=== PATIENT | male | born 1985 | race African-American/Black ===

== ENCOUNTER 2018-10-04 12:00 | Emergency (ER) | payer OTHER ==
[~2018-10-04] VITALS: Ht 167.6 cm; Wt 90.0 kg
[2018-10-04] MEDS ORDERED: NS 1,000 ML IV ONE (12:30)
[2018-10-04 13:10] LABS: BASO % 0.1 % (0.0-1.0); EOS # 0.1 10^3/uL (0.0-0.50); EOS % 0.7 % (0.0-3.0); HEMATOCRIT 37.8 % (42.0-52.0); HEMOGLOBIN 12.2 g/dl (13.5-17.5); LYMPH # 2.5 10^3/uL (1.5-4.5); LYMPH % 16.8 % (24.0-44.0); MEAN CORPUSCULAR HEMOGLOBIN 27.5 pg (27.0-33.0); MEAN CORPUSCULAR HGB CONC 32.3 g/dl (32.0-36.5); MEAN CORPUSCULAR VOLUME 85.3 fl (80.0-96.0); MONO # 0.7 10^3/uL (0.0-0.8); MONO % 4.4 % (0.0-5.0); NEUTROPHILS # 11.7 10^3/uL (1.8-7.7); NEUTROPHILS % 77.6 % (36.0-66.0); PLATELET COUNT, AUTOMATED 363 10^3/uL (150-450); RED BLOOD COUNT 4.43 10^6/uL (4.30-6.10); WHITE BLOOD COUNT 15.1 10^3/uL (4.0-10.0)
--- NOTE | 2018-10-04 13:17 | REP ---
CT Head without contrast HISTORY: Trauma COMPARISON: None There is no intraparenchymal hemorrhage, acute infarct, mass or midline shift. The ventricular system is normal in appearance. There is no extra cerebral collection. There is no fracture. The visualized sinuses are clear. IMPRESSION: There is no intracranial lesion. Electronically Signed by Yoan Abdi MD 10/04/2018 01:08 P
--- NOTE | 2018-10-04 13:20 | REP ---
CT cervical spine without contrast HISTORY: Trauma COMPARISON: None There is no acute fracture or subluxation. There is no disc bulge or herniation. The spinal canal and neural foramina are patent. The intervertebral discs and vertebral bodies are normal in height. IMPRESSION: There is no acute fracture or subluxation. Electronically Signed by Yoan Abdi MD 10/04/2018 01:12 P
--- NOTE | 2018-10-04 13:36 | REP ---
Chest two views HISTORY: Altered mental status Comparison: None Patchy density is present in the left lower lobe consistent with an infiltrate. The right lung is clear. The heart is normal in size. The pulmonary vasculature is normal in appearance. The bony structure is intact. IMPRESSION: Left lower lobe infiltrate. Electronically Signed by Yoan Abdi MD 10/04/2018 01:27 P
[2018-10-04 13:42] LABS: ACETAMINOPHEN LEVEL < 2.0 UG/ML (10.0-30.0); ALBUMIN 3.6 GM/DL (3.2-5.2); ALT/SGPT 28 U/L (12-78); BILIRUBIN,DIRECT 0.1 MG/DL (0.0-0.2); BILIRUBIN,TOTAL 0.3 MG/DL (0.2-1.0); BLOOD UREA NITROGEN 15 MG/DL (7-18); CALCIUM LEVEL 8.6 MG/DL (8.5-10.1); CARBON DIOXIDE LEVEL 26 MEQ/L (21-32); CHLORIDE LEVEL 107 MEQ/L (98-107); CPK CREATINE PHOSPHOKINASE 286 U/L (39-308); CREATININE FOR GFR 1.16 MG/DL (0.70-1.30); ETHYL ALCOHOL (ETHANOL) < 0.003 % (0.000-0.010); GLOMERULAR FILTRATION RATE > 60.0 (>60); GLUCOSE, FASTING 146 MG/DL (70-100); MB/CK RELATIVE INDEX 0.45 (< OR =4); POTASSIUM SERUM 4.1 MEQ/L (3.5-5.1); SODIUM LEVEL 140 MEQ/L (136-145); THYROID STIMULATING HORMONE 0.316 uIU/ML (0.358-3.740); TOTAL PROTEIN 6.8 GM/DL (6.4-8.2); TROPONIN I < 0.02 NG/ML (< 0.10)
--- NOTE | 2018-10-04 13:59 | REP ---
KUB: Single view. History: Evaluation for foreign body. Findings: The bowel gas pattern is normal. Air and stool is seen in a nondistended proximal and distal colon. No larger small bowel dilation is seen. EKG electrodes are noted over the abdomen. No significant bony abnormality is seen. Flank stripes and psoas margins are intact. Impression: No opaque foreign bodies seen. Normal bowel gas pattern. Electronically Signed by Hector Orlando MD 10/04/2018 01:50 P
[2018-10-04 14:31] LABS: AMPHETAMINES LEVEL URINE NEGATIVE (NEGATIVE); BARBITURATES URINE NEGATIVE (NEGATIVE); BENZODIAZEPINES URINE NEGATIVE (NEGATIVE); CANNABINOIDS URINE NEGATIVE (NEGATIVE); COCAINE METABOLITE URINE NEGATIVE (NEGATIVE); METHADONE URINE NEGATIVE (NEGATIVE); OPIATES URINE NEGATIVE (NEGATIVE); PHENCYCLIDINE URINE NEGATIVE (NEGATIVE)
[2018-10-04] MEDS ORDERED: AZIT-12 PO (14:52)
[2018-10-04 15:00] VITALS: BP 112/57
[2018-10-04] MEDS ORDERED: AZITHROMYCIN 250 MG TAB PO ONE (15:00)
[2018-10-04] MEDS ORDERED: cefTRIAXone SOD 1 GM in D5W MINI-BAG PLUS 50 ML IV ONE (15:00)
--- NOTE | 2018-10-05 07:18 | ECGEPIP ---
Stationary ECG Study [facility] - ED Test Date: 2018-10-04 Pat Name: MERLIN LEE Department: Room: - Gender: M [employer]: kelsey : 1985 Requested By: OCTAVIA Armendariz Order Number: [id number] Reading MD: Rachel Koenig Measurements Intervals [place] Rate: 78 P: 59 MI: 171 QRS: 14 QRSD: 116 T: 16 QT: 368 QTc: 420 Interpretive Statements SINUS RHYTHM POSSIBLE RIGHT VENTRICULAR CONDUCTION DELAY NO PRIOR FOR COMPARISON Electronically Signed On 10-05-2018 7:17:58 EDT by Rachel Koenig
== END 2018-10-04 15:13 | disposition home or self-care (01) ==
LOC: EDBD 12:00 → M ED 12:00
DX: J18.9 Pneumonia, unspecified organism (principal); F12.10 Cannabis abuse, uncomplicated; F11.10 Opioid abuse, uncomplicated
CPT/HCPCS: 36415; 70450; 71046; 72125; 74018; 80048; 80076; 80307; 81001; 82550; 82553; 84443; 84484; 85025; 93005; 93041; 94760; 96361; 96365; 96375; 99285; G0480; J0696